=== PATIENT | female | born 2000 | race Caucasian/White ===

== ENCOUNTER 2018-12-09 05:35 | Inpatient (IN) ==
[2018-12-09] MEDS ORDERED: PEPCID PO ONE (05:37)
[2018-12-09] MEDS ORDERED: REGLAN PO ONE (05:37)
[2018-12-09] MEDS ORDERED: KEFZOL 1 GM/D5W 1 GM/50 ML IVPB IV PRN (05:37)
[2018-12-09] MEDS ORDERED: BICITRA PO ONE (05:46)
[2018-12-09] MEDS: LR 1,000 ML IV SCH ×2 (06:10→06:56)
[2018-12-09 06:21] LABS: BASO# 0.02 X1000 (0.0-0.2); BASO% 0.2 % (0.0-0.8); EOS# 0.07 X1000 (0.0-0.7); EOS% 0.7 % (0.0-10.0); HEMATOCRIT 30.4 % (37.0-47.0); IMM GRAN# 0.04 X1000 (0.0-0.04); IMM GRAN% 0.4 % (0.0-0.5); LYMPH# 2.05 X1000 (1.2-3.4); LYMPH% 19.7 % (20.5-51.1); MCH 22.8 PG (27-31); MCHC 29.6 g/dL (33-37); MCV 77.2 FL (81-99); MONO# 0.87 X1000 (0.11-0.59); MONO% 8.4 % (1.7-9.3); NEUT# 7.34 X1000 (1.4-6.5); NEUT% 70.6 % (42.2-75.2); PLT 239 X1000 (130-400); RBC 3.94 XMIL (4.2-5.4); RDW 15.1 % (11.5-14.5); WBC 10.39 X1000 (4.8-10.8)
[2018-12-09 06:28] LABS: UR AMPHETAMINES QUAL NONE DETECTED (NONE DETECT); UR BARBITUATES QUAL NONE DETECTED (NONE DETECT); UR BENZODIAZEPIN QUAL NONE DETECTED (NONE DETECT); UR CANNABINOIDS QUAL NONE DETECTED (NONE DETECT); UR COCAINE QUAL NONE DETECTED (NONE DETECT); UR METHADONE QUAL NONE DETECTED (NONE DETECT); UR METHAMPHETAMINE QUAL NONE DETECTED (NONE DETECT); UR OPIATES QUAL NONE DETECTED (NONE DETECT); UR OXYCODONE QUAL NONE DETECTED (NONE DETECT); UR PCP QUAL NONE DETECTED (NONE DETECT); UR PROPOXYPHENE QUAL NONE DETECTED (NONE DETECT); UR TCA QUAL NONE DETECTED (NONE DETECT)
[2018-12-09 06:30] LABS: URINE SOURCE VOIDED
[2018-12-09 06:31] LABS: BILIRUBIN URINE NEGATIVE (NEGATIVE); BLOOD URINE NEGATIVE (NEGATIVE); CLARITY SL. CLOUDY (CLEAR); COLOR YELLOW; GLUCOSE URINE NEGATIVE (NEGATIVE); KETONE URINE TRACE mg/dL (NEGATIVE); LEUKOCYTES URINE TRACE (NEGATIVE); NITRITE URINE NEGATIVE (NEGATIVE); PH URINE 6.5; PROTEIN URINE TRACE mg/dL (NEGATIVE); UROBILINOGEN URINE 1 mg/dL
[2018-12-09] MEDS ORDERED: DURAMORPH ONE (06:53)
[2018-12-09] MEDS ORDERED: PITOCIN ONE (06:54)
[2018-12-09] MEDS ORDERED: EPHEDRINE ONE (06:54)
[2018-12-09] MEDS ORDERED: ZOFRAN ONE (06:54)
--- NOTE | 2018-12-09 08:13 | HISTORY AND PHYSICAL ---
HISTORY OF PRESENT ILLNESS: The patient is a 18-year-old G2, P1, 0-0-1 at 39 weeks, who presents to Labor and Delivery for repeat scheduled section. The patient reports good movement. Denies contractions, leakage of fluid or vaginal bleeding. MEDICATIONS: vitamins and iron. PAST MEDICAL HISTORY: None. PAST SURGICAL HISTORY: x1. OBSTETRICAL HISTORY: G2, P1, 0-0-1. One prior , term. 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 SOCIAL HISTORY: Denies tobacco use, alcohol or drug use. FAMILY HISTORY: Noncontributory. ALLERGIES: Guaifenesin and pseudoephedrine HCl. VITAL SIGNS: Temperature 97.7 degrees, pulse rate 96, respiration rate 18, blood pressure 119/71, and O2 sats 97% on room air. PHYSICAL EXAMINATION: GENERAL: No acute distress. Alert, awake, and oriented x3. CARDIOVASCULAR: Regular rate and rhythm. Positive S1, S2. RESPIRATORY: Clear to auscultation bilaterally. No rhonchi, rales, or wheezing. ABDOMEN: Gravid. Nontender to palpation. Soft. EXTREMITIES: No calf tenderness. monitoring category 1 tracing. [place] negative contraction. LABORATORY: WBCs 10.39, hemoglobin 9, hematocrit 30.4, and platelets 239,000. RPR nonreactive. ASSESSMENT: Mr. Le is a 18-year-old G2, P1, 0-0-1 at 39 weeks who presents for scheduled repeat low transverse delivery. PLAN: 1. Admit to Labor and Delivery. 2. Plan for repeat low transverse section. 3. Obtain routine labs for repeat section. 4. IV antibiotics to be given 1 hour prior to incision for prophylaxis.
[2018-12-09] MEDS ORDERED: TORADOL ONE (08:34)
[2018-12-09] MEDS ORDERED: PITOCIN 10 UNITS/NS 1,000 ML ONE (09:20)
[2018-12-09] MEDS ORDERED: NARCAN 0.4 MG in LR 1,000 ML IV PRN (09:30)
[2018-12-09] MEDS ORDERED: SODIUM CHLORIDE 0.9% INJ PRN (09:30)
[2018-12-09] MEDS ORDERED: NARCAN IV PRN (09:30)
[2018-12-09] MEDS ORDERED: PHENERGAN IV PRN (09:30)
[2018-12-09] MEDS ORDERED: BENADRYL IV PRN (09:30)
[2018-12-09] MEDS ORDERED: ZOFRAN IV PRN (09:30)
[2018-12-09] MEDS: MORPHINE PCA IV PRN ×3 (09:48→21:08)
[2018-12-09] MEDS ORDERED: PITOCIN IM PRN (10:59)
[2018-12-09] MEDS ORDERED: PHENERGAN IM PRN (10:59)
[2018-12-09] MEDS ORDERED: DEMEROL PO PRN (10:59)
[2018-12-09] MEDS ORDERED: DULCOLAX PR PRN (10:59)
[2018-12-09] MEDS ORDERED: BOOSTRIX VACCINE IM ONE (10:59)
[2018-12-09] MEDS ORDERED: AMBIEN PO PRN (10:59)
[2018-12-09] MEDS ORDERED: PITOCIN 20 UNITS/NS 20 UNITS/1,000 ML IV.SOLN IV ONE (10:59)
[2018-12-09] MEDS ORDERED: M-M-R II VACCINE SUBQ ONE (10:59)
[2018-12-09] MEDS ORDERED: HYDROXYZINE IM PRN (10:59)
[2018-12-09] MEDS ORDERED: ATARAX PO PRN (10:59)
[2018-12-09] MEDS ORDERED: MYLICON PO PRN (10:59)
[2018-12-09] MEDS ORDERED: DEMEROL IM PRN (10:59)
[2018-12-09] MEDS ORDERED: PITOCIN 10 UNITS/NS 1,000 ML IV SCH (11:00)
[2018-12-09] MEDS: MYLICON PO SCH (17:50)
--- NOTE | 2018-12-09 19:37 | OPERATIVE NOTE ---
PROCEDURE DATE: 12/09/2018 SURGEON: Beth Quinonez DO. RANCH HAND LIVESTOCK: Maile De La Rosa, medical student level 3. PREOPERATIVE DIAGNOSES: 1. Intrauterine at 39-weeks gestation. 2. Prior delivery x1. POSTOPERATIVE DIAGNOSES: 1. Intrauterine at 39-weeks gestation. 2. Prior delivery x1. PROCEDURE PERFORMED: Repeat low-transverse section. ANESTHESIA: Spinal. URINE OUTPUT: 200 mL. ESTIMATED BLOOD LOSS: 700 mL. PROCEDURE: The patient was taken to the operating room where a time-out was performed to confirm correct patient, correct procedure. Anesthesia was adequately established and prophylactic IV antibiotics were administered. The patient was then placed in a dorsal supine position with a leftward tilt of the hips. The patient was then prepped and draped in the usual sterile fashion for a Pfannenstiel skin incision. An incision was made in the skin with a surgical scalpel and sharp dissection was carried out over subsequent layers of tissue, including the fascia, followed by the Bovie electrocautery for hemostasis. The fascia was incised at the midline and the fascial incision was extended bilaterally using the curved Yousif scissors. The inferior edge of the fascial incision was grasped with Nick clamps, tented up, and the underlying rectus muscle was dissected off bluntly and using the Bovie electrocautery. Attention was then turned to the superior edge, which was grasped with Nick clamps, tented up, and the underlying rectus muscles were dissected off using Bovie electrocautery. The rectus muscle was then divided at the midline, and the peritoneum was identified and entered bluntly. The peritoneal incision was extended superiorly and inferiorly using Metzenbaum scissors with good visualization of the bladder. The bladder blade was inserted and the vesicouterine peritoneum was identified, grasped with Nigerien forceps, and cut laterally to both sides using Metzenbaum scissors. A bladder flap was then created using blunt and sharp dissection with the Metzenbaum scissors. The bladder blade was reinserted and a transverse incision was made in the lower uterine segment using the scalpel. The uterine incision was extended bilaterally using blunt dissection. The amniotic sac was entered and the amniotic fluid was noted to be clear. The surgeon's hand was then placed into the uterine cavity. The head was identified, elevated into the abdomen, and delivered through the uterine incision with the assistance of fundal pressure. The was examined for a nuchal cord. No nuchal cord was identified. The was then delivered with traction and the assistance of fundal pressure. On delivery, the cord was clamped and cut. The 's oral nasal passages were bulb suctioned. The was then passed off the table to the waiting fig washer staff for further care. Cord blood was obtained for analysis and routine blood testing. The placenta was manually extracted intact with a 3-vessel cord. Oxytocin was administered by IV infusion to enhance uterine contractions. The uterus was exteriorized and cleared of all clots and remaining products of conception. The uterine incision was reapproximated using 1-0 Monocryl in a running locked fashion. Non-hemostatic areas were reinforced using 1-0 Monocryl in a [id number] stitch. Good hemostasis was obtained. The uterus was replaced into the abdomen. The pericolic gutters were cleared of all clots. Surgicel was applied to the uterine incision to reinforce hemostasis. The fascia was reapproximated using 0 Vicryl in a running nonlocked fashion. The subcutaneous tissue was reapproximated using 2-0 plain gut in a running nonlocking fashion. The skin was reapproximated using 4-0 Monocryl on a Hector stitch insert. All needle, sponge, and instrument counts were noted to be correct x2 at the end of the procedure. The patient tolerated the procedure well and was transferred to the recovery room in stable condition.
[2018-12-09] MEDS: PERICOLACE PO SCH (22:22)
[2018-12-10 04:40] LABS: BASO# 0.02 X1000 (0.0-0.2); BASO% 0.2 % (0.0-0.8); EOS% 0.9 % (0.0-10.0); HEMOGLOBIN 7.5 g/dL (12.0-16.0); IMM GRAN# 0.03 X1000 (0.0-0.04); IMM GRAN% 0.3 % (0.0-0.5); LYMPH# 1.47 X1000 (1.2-3.4); LYMPH% 13.9 % (20.5-51.1); MCH 22.6 PG (27-31); MCHC 28.8 g/dL (33-37); MCV 78.3 FL (81-99); MONO% 7.6 % (1.7-9.3); MPV 10.3 FL (7.4-10.4); NEUT# 8.17 X1000 (1.4-6.5); NEUT% 77.1 % (42.2-75.2); PLT 196 X1000 (130-400); RBC 3.32 XMIL (4.2-5.4); WBC 10.59 X1000 (4.8-10.8)
--- NOTE | 2018-12-10 09:08 | OB/GYN PROGRESS NOTE ---
Progress Note OB - . OB Progress Note: Vital Signs - 24 hr 12/09/18 09:10 12/09/18 09:20 12/09/18 09:30 Temperature Pulse Rate 79 66 67 Respiratory Rate 16 18 18 Blood Pressure Blood Pressure [Right Arm] 117/61 119/72 122/71 O2 Sat by Pulse Oximetry 98 98 100 12/09/18 09:40 12/09/18 09:50 12/09/18 09:57 Temperature Pulse Rate 69 63 84 Respiratory Rate 18 16 Blood Pressure 118/75 Blood Pressure [Right Arm] 121/69 118/75 O2 Sat by Pulse Oximetry 98 99 98 12/09/18 10:03 12/09/18 15:00 12/09/18 16:56 Temperature 96.5 F L 96.6 F L Pulse Rate 57 L 90 Respiratory Rate 18 16 Blood Pressure 155/64 102/56 Blood Pressure [Right Arm] O2 Sat by Pulse Oximetry 100 100 99 12/09/18 19:55 12/10/18 00:30 12/10/18 05:00 Temperature 97.2 F L 97.0 F L Pulse Rate 77 88 96 H Respiratory Rate 18 18 18 Blood Pressure 103/57 117/71 127/69 Blood Pressure [Right Arm] O2 Sat by Pulse Oximetry 12/10/18 08:09 Temperature 97.4 F L Pulse Rate 97 H Respiratory Rate 16 Blood Pressure 102/62 Blood Pressure [Right Arm] O2 Sat by Pulse Oximetry 97 Laboratory Results - last 24 hr 12/10/18 04:20 WBC 10.59 RBC 3.32 L Hgb 7.5 L D Hct 26.0 L MCV 78.3 L MCH 22.6 L MCHC 28.8 L RDW Std Deviation 15.0 H Plt Count 196 MPV 10.3 Immature Gran % (Auto) 0.3 Neut % (Auto) 77.1 H Lymph % (Auto) 13.9 L [place] % (Auto) 7.6 Eos % (Auto) 0.9 Baso % (Auto) 0.2 Immature Gran # (Auto) 0.03 Neut # (Auto) 8.17 H Lymph # (Auto) 1.47 [place] # (Auto) 0.80 H Eos # (Auto) 0.10 Baso # (Auto) 0.02 Pt doing well pain controlled with meds minimal lochia ambulating. nicole out. urinating w/o difficulty no N/V tolerating po Vitals as above Gen: AAOx3 NAD CV: RRR no c/c/e Lungs: CTAB no w/r/r Abd: +BS soft NT/ND fundus firm at u -1 incision with bandage no strikethrough Ext: SCDs in place A: POD#1 s/p RLTCS Anemia P: PO pain meds ambulate TID Pt may shower heplock IV
[2018-12-10] MEDS: MYLICON PO SCH ×4 (09:10→21:19)
[2018-12-10] MEDS ORDERED: LR 1,000 ML IV SCH (10:59)
[2018-12-10] MEDS: DEMEROL PO PRN ×2 (13:33→17:59)
[2018-12-10] MEDS: MOTRIN PO PRN ×2 (13:34→21:19)
[2018-12-10] MEDS: PERICOLACE PO SCH (21:19)
[2018-12-10] MEDS: PERCOCET-10 PO PRN (21:20)
[2018-12-11] MEDS: MOTRIN PO PRN (08:44)
[2018-12-11] MEDS: PERCOCET-10 PO PRN (08:44)
[2018-12-11 08:49] VITALS: BP 119/77
[2018-12-11] MEDS: MYLICON PO SCH (09:41)
--- NOTE | 2018-12-14 16:09 | DISCHARGE SUMMARY ---
ADMISSION DATE: 12/09/2018 DISCHARGE DATE: 12/11/2018 ADMISSION DIAGNOSIS: A 18-year-old G2, P1, 39 weeks with a history of prior section for elective repeat section. FINAL DIAGNOSIS: 1. A 18-year-old G2, P1, 39 weeks with a history of prior section for elective repeat section. 2. Operative delivery of a male , 8 pounds 4 ounces with Apgars of 8 and 9 at 0754 on 12/09/2018. PROCEDURES: Repeat low transverse section. BRIEF HISTORY: The patient is a 18-year-old female G2, P1 at 39 weeks gestation scheduled for a repeat low-transverse . The patient reports good movement. Denies contractions, leaking fluid or vaginal bleeding. MEDICATIONS: vitamins and iron. MEDICAL HISTORY: Unremarkable. PAST SURGICAL HISTORY: x1. PAST OB HISTORY: G2, P1, x1. 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 SOCIAL HISTORY: Tobacco use none, alcohol use none, drug use none. FAMILY HISTORY: Noncontributory. ALLERGIES: To guaifenesin and pseudoephedrine. VITAL SIGNS: Temperature 97.7 degrees, pulse was 96, respirations 18, blood pressure 119/71. PHYSICAL EXAM: General: No acute distress. Alert, awake and oriented x3. CV: Regular rate and rhythm. Respiratory: Clear to auscultation. Abdomen: Gravid, nontender. Extremities: No calf tenderness. monitoring revealed a category 1 heart tracing. ASSESSMENT: A 18-year-old female G2, P1 at 39 weeks gestation with a history of prior section for elective repeat section. Patient scheduled for repeat section on 12/09/2018. HOSPITAL COURSE: The patient had operative delivery of a male , 8 pounds 4 ounces with Apgars of 8 and 9 at 0754 on 12/09/2018 and on her postoperative course her hemoglobin was 7.5 and hematocrit 26.0. She had stable vital signs and was afebrile and was advanced on her diet and became ambulatory. On postop day #2 she had expressed a desire to be discharged home if possible with the advancement of her bowel activity felt that she could be discharged home. Patient without any complications during her postoperative course. DISCHARGE PLANS: Follow up in 1 week for postop check. Patient given instructions on pelvic rest for the next 6 weeks, lifting precautions for the next 6 weeks. DISCHARGE MEDICATIONS: Percocet 10 dispense 20, ibuprofen, the patient is to continue with vitamins, also was given iron sulfate, she is to continue with her Fioricet as needed for migraine headaches and also given Colace. Patient instructed to call for any temperature greater than 101, heavy vaginal bleeding. cc: Sam Morris III, MD MTDNeida
== END 2018-12-11 12:10 | disposition home or self-care (01) | DRG 788 ==
LOC: P.LD 05:35
PROVIDERS: ADMIT Obstetrics & Gynecology; ATTEND Obstetrics & Gynecology